=== PATIENT | male | born 1985 | race Asian ===

== ENCOUNTER 2021-10-08 19:00 | Emergency (ER) | payer SELFPAY ==
[~2021-10-08] VITALS: Ht 167.6 cm; Wt 100.0 kg
[2021-10-08 19:13] VITALS: BP 140/68
[2021-10-08] MEDS ORDERED: MORPHINE SULFATE 4 MG/ML CPJ (NOT FOR IM USE) IV ONE (19:45)
[2021-10-08] MEDS ORDERED: CEFAZOLIN 1000MG PREMIX 50 ML IV ONE (19:45)
[2021-10-08] MEDS ORDERED: TETANUS, DIPHTHERIA, PERTUSSIS VAC/PF 0.5ML (>10YR OLD) IM ONE (19:45)
[2021-10-08] MEDS ORDERED: LIDOCAINE HCL 1% 20ML VIAL (Pyxis) INJ INFIL ONE (19:45)
[2021-10-08] MEDS: MORPHINE SULFATE 4 MG/ML CPJ (NOT FOR IM USE) IV ONE ×2 (21:56→22:00)
[2021-10-08] MEDS: CEFAZOLIN 1000MG PREMIX 50 ML IV ONE ×2 (21:56→22:00)
[2021-10-08] MEDS ORDERED: LIDOCAINE HCL/PF 1% 10 MG/ML 5ML VIAL INFIL ONE (22:45)
[2021-10-08] MEDS ORDERED: SULF1TAB47 MT (23:40)
[2021-10-08] MEDS ORDERED: CEPH500T MT (23:40)
== END 2021-10-09 00:23 | disposition home or self-care (01) ==
LOC: ER 19:00
DX: S62.635B Displaced fracture of distal phalanx of left ring finger, initial encounter for open fracture (principal); X58.XXXA Exposure to other specified factors, initial encounter; Y93.89 Activity, other specified; Y92.89 Other specified places as the place of occurrence of the external cause; Y99.8 Other external cause status
CPT/HCPCS: 12002; 73130; 90471; 90715; 96365; 96366; 96375; 99284; A4217; J0690; J2270; J3490; Z7610